=== PATIENT | female | born 1950 | race Caucasian/White ===

== ENCOUNTER 2023-08-30 06:57 | Day surgery (SDC) | payer MEDICARE, OTHER ==
[2023-08-25 14:41] LABS: BASOPHILS % (AUTO) 0.4 % (0-1); EOSINOPHILS # (AUTO) 0.1 X10'3 (0-0.9); EOSINOPHILS % (AUTO) 1.1 % (0-6); HEMATOCRIT 44.5 % (35.0-45.0); HEMOGLOBIN 14.6 g/dl (12.0-16.0); LYMPHOCYTES # (AUTO) 1.9 X10'3 (1.1-4.8); LYMPHOCYTES % (AUTO) 19.1 % (21-51); MEAN CORPUSCULAR HEMOGLOBIN 29.2 PG (27.0-31.0); MEAN CORPUSCULAR HGB CONC 32.7 g/dL (33.0-36.5); MEAN CORPUSCULAR VOLUME 89.1 FL (78-98); MEAN PLATELET VOLUME 8.9 FL (7.4-10.4); MONOCYTES # (AUTO) 0.8 X10'3 (0-0.9); MONOCYTES % (AUTO) 8.1 % (2-12); NEUTROPHILS # (AUTO) 7.1 X10'3 (1.8-7.7); NEUTROPHILS % (AUTO) 71.3 % (42-75); PLATELET COUNT 308 X10'3 (140-440); RED BLOOD COUNT 4.99 X10'6 (4.20-5.60); RED CELL DISTRIBUTION WIDTH 14.7 % (11.5-14.5); WHITE BLOOD COUNT 9.9 X10'3 (4.5-11.0)
[2023-08-25 14:57] LABS: ALANINE AMINOTRANSFERASE 23 U/L (12-78); ALBUMIN 4.1 G/DL (3.4-5.0); ALBUMIN/GLOBULIN RATIO 1.1 (1.1-1.5); ALKALINE PHOSPHATASE 70 IU/L (46-116); ANION GAP 6 (8-16); ASPARTATE AMINO TRANSFERASE 21 U/L (10-37); BILIRUBIN,TOTAL 0.4 MG/DL (0.1-1.0); BLOOD UREA NITROGEN 20 MG/DL (7-18); BUN/CREATININE RATIO 23.5 (10.0-20.0); CALCIUM 9.3 MG/DL (8.5-10.1); CHLORIDE 103 MMOL/L (99-107); CREATININE 0.85 MG/DL (0.40-0.90); GLUCOSE 98 MG/DL (70-104); POTASSIUM 3.9 MMOL/L (3.5-5.1); SODIUM 140 MMOL/L (135-145); TOTAL CARBON DIOXIDE 30.8 MMOL/L (24-32); TOTAL PROTEIN 7.8 G/DL (6.4-8.2); eGFR 65 ML/MIN
[2023-08-30] VITALS (22 sets, daily range): BP systolic 116–210; BP diastolic 55–113; PULSE 63–85; RESP 9–18; TEMP 98.6; O2SAT 94–100
[~2023-08-30] VITALS: Ht 165.1 cm; Wt 96.1 kg
[~2023-08-30 06:57] MED LIST: AMLO10TA PO; ATOR10TA PO; CITA20TA28 PO; LOSA1TAB41 PO; MELO-100 PO; cefazolin 2gm/D5W 100mL 100 ML IV ONE; famotidine 20mg tablet PO ONE; ringers solution, lacted 1,000 ML IV SCH; tranexamic acid 650mg tablet PO ONE; vancomycin 1,500 MG in NS 300ml IV soln IV ONE
[2023-08-30] MEDS ORDERED: BUPIVACAINE/MELOXICAM 14 ML VIAL IL ONE ×2 (09:42→10:28)
[2023-08-30] MEDS ORDERED: fentaNYL/PF 50MCG/1 ML 2ML syringe ONE (10:00)
[2023-08-30] MEDS ORDERED: MIDAZolam 1 MG/ML 5ML VIAL ONE (10:01)
[2023-08-30] MEDS ORDERED: cloNIDine hcl/PF 100mcg/ml inj ONE (10:07)
[2023-08-30] MEDS ORDERED: BUPIVAcaine/dex-water/PF 7.5 mg/ml 2ml ampul ONE (10:33)
[2023-08-30] MEDS ORDERED: diphenhydrAMINE 50 mg/ml inj ONE (10:33)
[2023-08-30] MEDS ORDERED: hydrALAZINE 20mg/ml inj. IV ONE (10:33)
[2023-08-30] MEDS ORDERED: ringers solution, lacted 1,000 ML IV SCH (11:20)
[2023-08-30] MEDS ORDERED: ondansetron/PF 4mg/2ml inj IV PRN (11:20)
[2023-08-30] MEDS ORDERED: morphine 2 MG/ML inj. syringe IV PRN (11:20)
[2023-08-30] MEDS ORDERED: HYDROmorphone/PF 0.2 MG/ML SYRINGE IV PRN ×2 (11:20)
[2023-08-30] MEDS ORDERED: ROPIVAcaine 0.5% (5mg/ml) 30ml vial ONE (12:19)
[2023-08-30] MEDS ORDERED: dexamethasone sod phosphate 4mg/ml inj. ONE (12:19)
[2023-08-30] MEDS ORDERED: propofol inj 40 ML IV ONE (12:19)
[2023-08-30] MEDS ORDERED: HYDROcodone/acetaminophen 10/325mg tab PO PRN (12:55)
[2023-08-30] MEDS ORDERED: ceFAZolin/D5W- 1GM premix 50 ML IV SCH (15:05)
== END 2023-08-30 15:53 | disposition home or self-care (01) ==
LOC: UNDOADMIN 06:57 → PAS IN 06:57 → OR 06:57 → EDSTATUS 09:30 → UNDODISIN 15:53 → OR 15:53
PROVIDERS: ATTEND Orthopaedic Surgery
DX: M17.11 Unilateral primary osteoarthritis, right knee (principal); G89.18 Other acute postprocedural pain; I10 Essential (primary) hypertension; F32.A Depression, unspecified; E66.9 Obesity, unspecified; Z68.36 Body mass index [BMI] 36.0-36.9, adult; Z98.890 Other specified postprocedural states; Z90.710 Acquired absence of both cervix and uterus; Z98.41 Cataract extraction status, right eye; Z98.42 Cataract extraction status, left eye; Z88.2 Allergy status to sulfonamides; Z79.899 Other long term (current) drug therapy
CPT/HCPCS: 20985; 27447; 36415; 64447; 80053; 82948; 85025; 87081; 97116; 97161; C1713; C1776; J0360; J0690; J0735; J1100; J1170; J1200; J2250; J2704; J2795; J3010; J3370; J3490; J7030; J7120; Z7506; Z7508; Z7512; 97530; A4215; A7000